=== PATIENT | male | born 1975 | race Hispanic/Latino ===

== ENCOUNTER 2024-03-07 08:08 | Outpatient (CLI) | payer BC | END 2024-03-07 08:09 | disposition home or self-care (01) | LOC: CSHMRI 08:08 | DX: M51.26 Other intervertebral disc displacement, lumbar region (principal); M89.8X8 Other specified disorders of bone, other site; M51.369 Other intervertebral disc degeneration, lumbar region without mention of lumbar back pain or lower extremity pain; M51.379 Other intervertebral disc degeneration, lumbosacral region without mention of lumbar back pain or lower extremity pain | CPT/HCPCS: 72146; 72148 ==